=== PATIENT | male | born 1960 | race Caucasian/White ===

== ENCOUNTER 2018-09-28 06:23 | Inpatient (IN) | payer OTHER, BC ==
[2018-09-28] MEDS: SOD CHLORIDE 0.9% 1,000 ML IV ×3 (06:00→18:45)
[~2018-09-28 06:23] MED LIST: CEFAZOLIN 2 GM/50 ML (PMX) 50 ML IVPB
[2018-09-28] MEDS ORDERED: ONDANSETRON 4 MG INJ (08:42)
[2018-09-28] MEDS ORDERED: METOCLOPRAMIDE 10 MG INJ (08:42)
[2018-09-28] MEDS ORDERED: ROPIVACAINE 0.5 % 30 ML VIAL (08:42)
[2018-09-28] MEDS ORDERED: MIDAZOLAM 1 MG/ML 2 ML INJ (08:42)
[2018-09-28] MEDS ORDERED: PROPOFOL 0 ML (08:42)
[2018-09-28] MEDS ORDERED: CEFAZOLIN 1 GM INJ (08:42)
[2018-09-28] MEDS ORDERED: OXYCODONE/ACETAMINOPHEN (5/325) TAB PO ×2 (09:00)
[2018-09-28] MEDS ORDERED: DIPHENHYDRAMINE 50 MG INJ IV (09:00)
[2018-09-28] MEDS ORDERED: HYDROmorphONE 1 MG/5 ML IV SYRINGE IV ×2 (09:00)
[2018-09-28] MEDS ORDERED: PROPOFOL 20 ML ×2 (09:12→09:39)
[2018-09-28] MEDS ORDERED: GLYCOPYRROLATE 0.4 MG INJ (09:13)
[2018-09-28] MEDS ORDERED: KETOROLAC 30 MG INJ (09:13)
[2018-09-28] MEDS ORDERED: NEOSTIGMINE 10 MG INJ (09:13)
[2018-09-28] MEDS ORDERED: HYDROmorphONE 2 MG/ML SYG (09:15)
[2018-09-28] MEDS: POLYMYXIN/BACITRACIN 1L IRRIG (09:25)
[2018-09-28] MEDS ORDERED: ROCURONIUM 50 MG INJ (09:40)
[2018-09-28] MEDS: BUPIVACAINE 0.25% (MPF) 30 ML INJ (10:06)
[2018-09-28] MEDS ORDERED: METOPROLOL 5 MG INJ (10:09)
[2018-09-28] MEDS ORDERED: SUGAMMADEX SODIUM 200 MG/2 ML VIAL IV (10:18)
[2018-09-28] MEDS: ONDANSETRON 4 MG INJ IV (10:43)
[2018-09-28] MEDS: MEPERIDINE 25 MG INJ IV (10:43)
[2018-09-28] MEDS: HYDROmorphONE 1 MG/5 ML IV SYRINGE IV (10:43)
[2018-09-28] MEDS ORDERED: FENTAnyl 50 MCG/ML VIAL IV (11:00)
[2018-09-28] MEDS: FENTAnyl 50 MCG/ML VIAL IV (11:10)
[2018-09-28 11:31] LABS: ADD MAN DIFF? NO
[2018-09-28] MEDS: hydrALAzine 20 MG INJ IV (11:31)
[2018-09-28 11:32] LABS: BASOPHILS % 0.4 % (0.0-2.0); EOSINOPHILS # 0.1 10^3/ul (0.0-0.5); EOSINOPHILS % 0.7 % (0.0-7.0); HEMATOCRIT 43.3 % (42.0-52.0); HEMOGLOBIN 14.9 g/dl (14.0-18.0); LYMPHOCYTES # 1.2 10^3/ul (0.8-2.9); LYMPHOCYTES % 16.1 % (15.0-51.0); MEAN CORPUSCULAR HGB CONC 34.4 g/dl (32.0-37.0); MEAN CORPUSCULAR VOLUME 92.9 fl (82.0-101.0); MEAN PLATELET VOLUME 10.2 fl (7.4-10.4); MONOCYTE # 0.6 10^3/ul (0.3-0.9); MONOCYTES % 8.3 % (0.0-11.0); NEUTROPHIL # 5.6 10^3/ul (1.6-7.5); NEUTROPHILS % 73.8 % (39.0-77.0); PLATELET COUNT 126 10^3/UL (140-415); POSITIVE DIFF @See below; RED BLOOD COUNT 4.66 10^6/ul (4.70-6.10); RED CELL DISTRIBUTION WIDTH 12.2 % (11.5-14.5)
[2018-09-28 11:32] LABS: WHITE BLOOD COUNT 7.6 10^3/ul (4.8-10.8)
[2018-09-28 11:51] LABS: ALANINE AMINOTRANSFERASE 34 IU/L (13-69); ALBUMIN 4.4 g/dl (3.3-4.9); ALBUMIN/GLOBULIN RATIO 1.69; ALKALINE PHOSPHATASE 65 IU/L (42-121); ANION GAP 12 (5-13); ASPARTATE AMINO TRANSFERASE 25 IU/L (15-46); BILIRUBIN,INDIRECT 0.6 mg/dl (0-1.1); BILIRUBIN,TOTAL 0.6 mg/dl (0.2-1.3); BLOOD UREA NITROGEN 18 mg/dl (7-20); CARBON DIOXIDE 25 mmol/L (21-31); CHLORIDE 108 mmol/L (97-110); CREATININE 0.89 mg/dl (0.61-1.24); Estimated GFR > 60 mL/min (>60); GLUCOSE 114 mg/dl (70-220); POTASSIUM 4.8 mmol/L (3.5-5.1); SODIUM 145 mmol/L (135-144)
[2018-09-28] MEDS ORDERED: ONDANSETRON 4 MG INJ IV (13:00)
[2018-09-28] MEDS: morphine 2 MG INJ IV (13:23)
[2018-09-28] MEDS ORDERED: CEFAZOLIN 2 GM/50 ML (PMX) 50 ML IVPB ×2 (14:00→17:00)
[2018-09-28] MEDS ORDERED: NALOXONE (0.4 MG/ML) INJ IV ×2 (15:00)
[2018-09-28] MEDS ORDERED: HYDROmorphONE 0.2 MG/ML PCA IV (15:00)
[2018-09-28] MEDS: HYDROmorphONE 0.2 MG/ML PCA IV (15:32)
[2018-09-28] MEDS ORDERED: VITAMIN A & D 5 GM OINT PACKET TOP (17:10)
[2018-09-28] MEDS: CEFAZOLIN 2 GM in SOD CHLORIDE 0.9% 50 ML IVPB (18:47)
[2018-09-28] MEDS: LEVALBUTEROL (NEB) 0.63 MG/3 ML AMP HHN (22:15)
[2018-09-29] MEDS: CEFAZOLIN 2 GM in SOD CHLORIDE 0.9% 50 ML IVPB ×3 (01:41→18:07)
[2018-09-29] MEDS: HYDROmorphONE 0.2 MG/ML PCA IV ×2 (03:24→16:48)
[2018-09-29] MEDS: SOD CHLORIDE 0.9% 1,000 ML IV ×3 (04:08→20:20)
[2018-09-29] MEDS: hydrALAzine 20 MG INJ IV ×3 (04:17→18:07)
[2018-09-29 05:23] LABS: ADD MAN DIFF? NO
[2018-09-29 05:26] LABS: BASOPHILS % 0.3 % (0.0-2.0); EOSINOPHILS % 0.4 % (0.0-7.0); HEMATOCRIT 40.4 % (42.0-52.0); HEMOGLOBIN 13.7 g/dl (14.0-18.0); LYMPHOCYTES % 13.4 % (15.0-51.0); MEAN CORPUSCULAR HEMOGLOBIN 31.4 pg (29.0-33.0); MEAN CORPUSCULAR HGB CONC 33.9 g/dl (32.0-37.0); MEAN CORPUSCULAR VOLUME 92.7 fl (82.0-101.0); MEAN PLATELET VOLUME 10.7 fl (7.4-10.4); MONOCYTE # 0.8 10^3/ul (0.3-0.9); MONOCYTES % 10.4 % (0.0-11.0); NEUTROPHIL # 5.6 10^3/ul (1.6-7.5); NEUTROPHILS % 75.1 % (39.0-77.0); PLATELET COUNT 110 10^3/UL (140-415); POSITIVE DIFF @See below; RED BLOOD COUNT 4.36 10^6/ul (4.70-6.10); RED CELL DISTRIBUTION WIDTH 12.2 % (11.5-14.5)
[2018-09-29 05:26] LABS: WHITE BLOOD COUNT 7.4 10^3/ul (4.8-10.8)
[2018-09-29 05:37] LABS: ALANINE AMINOTRANSFERASE 27 IU/L (13-69); ALBUMIN 4.2 g/dl (3.3-4.9); ALBUMIN/GLOBULIN RATIO 1.68; ALKALINE PHOSPHATASE 54 IU/L (42-121); ANION GAP 13 (5-13); ASPARTATE AMINO TRANSFERASE 29 IU/L (15-46); BILIRUBIN,INDIRECT 1.3 mg/dl (0-1.1); BILIRUBIN,TOTAL 1.3 mg/dl (0.2-1.3); BLOOD UREA NITROGEN 15 mg/dl (7-20); CARBON DIOXIDE 28 mmol/L (21-31); CHLORIDE 100 mmol/L (97-110); CREATININE 0.91 mg/dl (0.61-1.24); Estimated GFR > 60 mL/min (>60); GLUCOSE 107 mg/dl (70-220); POTASSIUM 4.2 mmol/L (3.5-5.1); SODIUM 141 mmol/L (135-144); TOTAL PROTEIN 6.7 g/dl (6.1-8.1)
[2018-09-29] MEDS: LEVALBUTEROL (NEB) 0.63 MG/3 ML AMP HHN ×3 (07:38→15:46)
[2018-09-29] MEDS: AMLODIPINE 5 MG TAB PO (18:04)
[2018-09-29] MEDS: TENOFOVIR PO (18:06)
[2018-09-29] MEDS: ODEFSEY PO (18:06)
[2018-09-29] MEDS: RILPIVIRINE PO (18:06)
[2018-09-30] MEDS: LEVALBUTEROL (NEB) 0.63 MG/3 ML AMP HHN ×4 (01:32→23:47)
[2018-09-30] MEDS: CEFAZOLIN 2 GM in SOD CHLORIDE 0.9% 50 ML IVPB ×3 (02:28→18:05)
[2018-09-30 05:42] LABS: ALANINE AMINOTRANSFERASE 27 IU/L (13-69); ALBUMIN 4.2 g/dl (3.3-4.9); ALBUMIN/GLOBULIN RATIO 1.61; ALKALINE PHOSPHATASE 61 IU/L (42-121); ANION GAP 12 (5-13); ASPARTATE AMINO TRANSFERASE 46 IU/L (15-46); BILIRUBIN,INDIRECT 1.7 mg/dl (0-1.1); BILIRUBIN,TOTAL 1.7 mg/dl (0.2-1.3); BLOOD UREA NITROGEN 9 mg/dl (7-20); CALCIUM 9.6 mg/dl (8.4-10.2); CARBON DIOXIDE 29 mmol/L (21-31); CHLORIDE 100 mmol/L (97-110); CREATININE 0.72 mg/dl (0.61-1.24); Estimated GFR > 60 mL/min (>60); GLUCOSE 123 mg/dl (70-220); POTASSIUM 3.8 mmol/L (3.5-5.1); SODIUM 141 mmol/L (135-144); TOTAL PROTEIN 6.8 g/dl (6.1-8.1)
[2018-09-30] MEDS: SOD CHLORIDE 0.9% 1,000 ML IV ×2 (07:22→18:05)
[2018-09-30] MEDS: DOCUSATE SODIUM 100 MG CAP PO (09:30)
[2018-09-30] MEDS: AMLODIPINE 5 MG TAB PO (09:31)
[2018-09-30] MEDS: BISACODYL (EC) 5 MG TAB PO (09:31)
[2018-09-30] MEDS: ODEFSEY PO (09:32)
[2018-09-30] MEDS: RILPIVIRINE PO (09:32)
[2018-09-30] MEDS: TENOFOVIR PO (09:32)
[2018-09-30] MEDS: HYDROmorphONE 0.2 MG/ML PCA IV (13:03)
[2018-09-30] MEDS: hydrALAzine 20 MG INJ IV (20:14)
[2018-10-01] MEDS: CEFAZOLIN 2 GM in SOD CHLORIDE 0.9% 50 ML IVPB ×3 (01:53→18:12)
[2018-10-01] MEDS: BISACODYL (EC) 5 MG TAB PO (03:42)
[2018-10-01] MEDS: DOCUSATE SODIUM 100 MG CAP PO (03:42)
[2018-10-01] MEDS: HYDROmorphONE 0.2 MG/ML PCA IV ×2 (04:15→18:41)
[2018-10-01] MEDS: SOD CHLORIDE 0.9% 1,000 ML IV ×2 (05:35→18:12)
[2018-10-01] MEDS: LEVALBUTEROL (NEB) 0.63 MG/3 ML AMP HHN (08:20)
[2018-10-01] MEDS: AMLODIPINE 5 MG TAB PO (09:14)
[2018-10-01] MEDS: ODEFSEY PO (09:14)
[2018-10-01] MEDS: RILPIVIRINE PO (09:14)
[2018-10-01] MEDS: TENOFOVIR PO (09:14)
[2018-10-02] MEDS: CEFAZOLIN 2 GM in SOD CHLORIDE 0.9% 50 ML IVPB ×3 (01:44→17:59)
[2018-10-02] MEDS: SOD CHLORIDE 0.9% 1,000 ML IV ×3 (04:13→18:00)
[2018-10-02] MEDS: ODEFSEY PO (09:06)
[2018-10-02] MEDS: AMLODIPINE 5 MG TAB PO (09:06)
[2018-10-02] MEDS: TENOFOVIR PO (09:06)
[2018-10-02] MEDS: RILPIVIRINE PO (09:06)
[2018-10-02] MEDS: DOCUSATE SODIUM 100 MG CAP PO ×2 (11:29→22:23)
[2018-10-02] MEDS: BISACODYL (EC) 5 MG TAB PO (11:29)
[2018-10-02] MEDS: HYDROmorphONE 0.2 MG/ML PCA IV (14:48)
[2018-10-02] MEDS: PROMETHAZINE/CODEINE 5ML CUP PO (22:23)
[2018-10-03] MEDS: CEFAZOLIN 2 GM in SOD CHLORIDE 0.9% 50 ML IVPB ×3 (02:23→17:18)
[2018-10-03] MEDS: SOD CHLORIDE 0.9% 1,000 ML IV ×2 (06:38→20:13)
[2018-10-03] MEDS: TENOFOVIR PO (09:49)
[2018-10-03] MEDS: RILPIVIRINE PO (09:49)
[2018-10-03] MEDS: AMLODIPINE 5 MG TAB PO (09:49)
[2018-10-03] MEDS: ODEFSEY PO (09:49)
[2018-10-03] MEDS: HYDROCODONE/APAP (5/325) TAB PO ×2 (17:19→21:35)
[2018-10-03] MEDS: OXYCODONE/ACETAMINOPHEN (5/325) TAB PO (18:12)
[2018-10-03] MEDS: ALBUTEROL 0.083% (NEB) 2.5 MG/3 ML AMP HHN (18:22)
[2018-10-04] MEDS: CEFAZOLIN 2 GM in SOD CHLORIDE 0.9% 50 ML IVPB ×3 (02:59→17:30)
[2018-10-04 05:12] LABS: ADD MAN DIFF? NO
[2018-10-04 05:14] LABS: BASOPHILS % 0.8 % (0.0-2.0); EOSINOPHILS # 0.2 10^3/ul (0.0-0.5); EOSINOPHILS % 3.1 % (0.0-7.0); HEMATOCRIT 35.4 % (42.0-52.0); LYMPHOCYTES # 1.1 10^3/ul (0.8-2.9); LYMPHOCYTES % 21.7 % (15.0-51.0); MEAN CORPUSCULAR HEMOGLOBIN 31.9 pg (29.0-33.0); MEAN CORPUSCULAR HGB CONC 33.9 g/dl (32.0-37.0); MEAN CORPUSCULAR VOLUME 94.1 fl (82.0-101.0); MEAN PLATELET VOLUME 9.8 fl (7.4-10.4); MONOCYTE # 0.7 10^3/ul (0.3-0.9); MONOCYTES % 14.3 % (0.0-11.0); NEUTROPHIL # 2.9 10^3/ul (1.6-7.5); NEUTROPHILS % 59.1 % (39.0-77.0); PLATELET COUNT 156 10^3/UL (140-415); RED BLOOD COUNT 3.76 10^6/ul (4.70-6.10)
[2018-10-04 05:14] LABS: WHITE BLOOD COUNT 4.8 10^3/ul (4.8-10.8)
[2018-10-04 05:32] LABS: INR 1.07; PT RATIO 1.1
[2018-10-04 05:33] LABS: PARTIAL THROMBOPLASTIN TIME 27.5 Sec (23.0-35.0)
[2018-10-04 05:35] LABS: ALANINE AMINOTRANSFERASE 73 IU/L (13-69); ALBUMIN 3.9 g/dl (3.3-4.9); ALKALINE PHOSPHATASE 106 IU/L (42-121); ANION GAP 9 (5-13); ASPARTATE AMINO TRANSFERASE 75 IU/L (15-46); BILIRUBIN,INDIRECT 0.8 mg/dl (0-1.1); BILIRUBIN,TOTAL 0.8 mg/dl (0.2-1.3); BLOOD UREA NITROGEN 14 mg/dl (7-20); CALCIUM 9.3 mg/dl (8.4-10.2); CARBON DIOXIDE 31 mmol/L (21-31); CHLORIDE 101 mmol/L (97-110); CREATININE 0.68 mg/dl (0.61-1.24); Estimated GFR > 60 mL/min (>60); GLUCOSE 108 mg/dl (70-220); POTASSIUM 4.2 mmol/L (3.5-5.1); SODIUM 141 mmol/L (135-144); TOTAL PROTEIN 6.5 g/dl (6.1-8.1)
[2018-10-04] MEDS: SOD CHLORIDE 0.9% 1,000 ML IV ×2 (06:13→16:13)
[2018-10-04] MEDS: HYDROCODONE/APAP (5/325) TAB PO ×3 (07:54→14:58)
[2018-10-04] MEDS: AMLODIPINE 5 MG TAB PO (07:55)
[2018-10-04] MEDS: TENOFOVIR PO (07:55)
[2018-10-04] MEDS: ODEFSEY PO (07:55)
[2018-10-04] MEDS: RILPIVIRINE PO (07:55)
[2018-10-04] MEDS: OXYCODONE/ACETAMINOPHEN (5/325) TAB PO ×2 (08:44→17:30)
[2018-10-04] MEDS: ALBUTEROL 0.083% (NEB) 2.5 MG/3 ML AMP HHN (09:30)
[2018-10-04] MEDS ORDERED: MAGNESIUM HYDROXIDE 30ML CUP PO (12:00)
[2018-10-04] MEDS: BISACODYL (EC) 5 MG TAB PO (18:20)
[2018-10-04] MEDS: DOCUSATE SODIUM 100 MG CAP PO (18:20)
[2018-10-05] MEDS: CEFAZOLIN 2 GM in SOD CHLORIDE 0.9% 50 ML IVPB (01:26)
[2018-10-05] MEDS: SOD CHLORIDE 0.9% 1,000 ML IV (01:37)
[2018-10-05] MEDS: HYDROCODONE/APAP (5/325) TAB PO (04:01)
[2018-10-05] MEDS: ODEFSEY PO (08:11)
[2018-10-05] MEDS: TENOFOVIR PO (08:11)
[2018-10-05] MEDS: RILPIVIRINE PO (08:11)
[2018-10-05] MEDS: DOCUSATE SODIUM 100 MG CAP PO (08:12)
[2018-10-05] MEDS: OXYCODONE/ACETAMINOPHEN (5/325) TAB PO ×2 (08:12→14:05)
[2018-10-05] MEDS: AMLODIPINE 5 MG TAB PO (08:12)
== END 2018-10-05 18:50 | disposition home or self-care (01) | DRG 355 ==
LOC: REC 06:23 → MS1 12:00
PROC: 0WUF0JZ Supplement Abdominal Wall with Synthetic Substitute, Open Approach (ICD-10-PCS; principal; 2018-09-28 08:42)
PROC: 0WUF0JZ Supplement Abdominal Wall with Synthetic Substitute, Open Approach (ICD-10-PCS; 2018-09-28 08:42)
DX: K43.6 Other and unspecified ventral hernia with obstruction, without gangrene (principal); I10 Essential (primary) hypertension; K42.0 Umbilical hernia with obstruction, without gangrene
CPT/HCPCS: 74018; 80053; 85025; 85610; 85730; 94640; 94664